=== PATIENT | female | born 2000 | race Two or more races ===

== ENCOUNTER 2022-06-23 19:48 | Inpatient (IN) | payer OTHER ==
[~2022-06-23] VITALS: Ht 170.2 cm; Wt 112.9 kg
[2022-06-24] MEDS ORDERED: PRENATAL TABLE1 EAC1 PO (02:11)
== END 2022-06-26 15:38 | disposition home or self-care (01) | DRG 807 ==
LOC: OB/GYN 19:48 → LDR 19:48 → OB/GYN 06-25 02:07
PROVIDERS: ADMIT Obstetrics & Gynecology; ATTEND Obstetrics & Gynecology
PROC: 4A1HXCZ Monitoring of Products of Conception, Cardiac Rate, External Approach (ICD-10-PCS; 2022-06-23)
PROC: 10E0XZZ Delivery of Products of Conception, External Approach (ICD-10-PCS; principal; 2022-06-25)
DX: O80 Encounter for full-term uncomplicated delivery (principal); Z37.0 Single live birth; Z3A.39 39 weeks gestation of pregnancy; Z20.822 Contact with and (suspected) exposure to COVID-19